=== PATIENT | male | born 1950 | race American Indian/Alaskan Native ===

== ENCOUNTER 2023-09-19 10:12 | Inpatient (IN) | payer BC, OTHER ==
[~2023-09-19] VITALS: Ht 177.8 cm; Wt 60.0 kg
[2023-09-19 10:13] VITALS: BP 118/75; RESP 15; O2SAT 97
[2023-09-19 10:51] VITALS: PULSE 82
[2023-09-19 11:15] LABS: Basophils # (auto) 0 10 ^3/uL (0-0.2); Basophils % (auto) 0.1 % (0.0-2.0); Eosinophils # (auto) 0 10 ^3/uL (0-0.8); Eosinophils % (auto) 0.1 % (0.0-7.0); Hematocrit 38.3 % (41.0-53.0); Hemoglobin 12.2 g/dL (13.5-17.5); Lymphocytes # (auto) 1.2 10 ^3/uL (0.4-5.4); Mean Corpuscular Hemoglobin 28.8 pg (28.0-32.0); Mean Corpuscular Volume 90.1 fL (80.0-100.0); Monocytes # (auto) 0.8 10 ^3/uL (0-1.3); Monocytes % (auto) 3.8 % (0.0-12.0); Neutrophils # (auto) 18.6 10 ^3/uL (1.6-8.6); Nucleated Red Blood Cells % 0.1 %; Red Blood Cells 4.25 10^6/uL (4.5-5.90); Red Cell Distribution Width 16.8 % (11.8-14.3); White Blood Cell 20.6 10^3/uL (4.4-10.8)
[2023-09-19 12:06] LABS: Albumin 3.4 g/dL (3.2-4.8); Alkaline Phosphatase 93 U/L (46-116); Anion Gap 8 (5-15); Aspartate Aminotransferase 24 U/L (13-40); BUN/Creatinine Ratio 19.8 (10.0-20.0); Blood Urea Nitrogen 18 mg/dL (9-23); Calcium 8.7 mg/dL (8.5-10.1); Carbon Dioxide 24 mmol/L (20-30); Chloride 105 mmol/L (98-107); Glucose 106 mg/dL (74-106); Potassium 3.8 mmol/L (3.5-5.1); Sodium 137 mmol/L (136-145); Total Protein 6.6 g/dL (5.7-8.2)
[2023-09-19 12:16] LABS: Bilirubin, Total 0.6 mg/dL (0.2-1.0)
[2023-09-19 12:21] LABS: Alanine Aminotransferase < 9 U/L (7-40)
[2023-09-19 12:38] LABS: INR 1.1 (0.9-1.15); Partial Thromboplastin Time 27.6 SEC (24.5-34.5); Prothrombin Time 11.6 sec (9.3-11.8)
[2023-09-19] MEDS: IOHEXOL 350 MG/ML 100ML IJ ONE (14:00)
[2023-09-19] MEDS ORDERED: ENOXAPARIN SOD 100 MG/1 ML SYRINGE SC ONE (19:30)
[2023-09-19] MEDS ORDERED: DOCUSATE SOD 100 MG CAP PO PRN (21:00)
[2023-09-19] MEDS ORDERED: ACETAMINOPHEN 325 MG TAB PO PRN (21:00)
[2023-09-19] MEDS ORDERED: HYDROcodone-ACET 5/325MG TAB PO PRN (21:00)
[2023-09-19] MEDS ORDERED: NITROGLYCERIN 0.4 MG SL TAB SL PRN (21:00)
[2023-09-19] MEDS ORDERED: SODIUM CHLORIDE 0.9% 1,000 ML IV ONE (21:00)
[2023-09-19] MEDS ORDERED: TEMAZEPAM 15 MG CAP PO PRN (21:00)
[2023-09-19] MEDS ORDERED: MORPHINE SULFATE INJ 2 MG/ml SYRG IV PRN ×2 (21:00)
[2023-09-19] MEDS ORDERED: ONDANSETRON HCL 4 MG/2 ML VIAL IV PRN (21:00)
[2023-09-19] MEDS ORDERED: ENOXAPARIN SOD 60 MG/0.6 ML SYRINGE SC SCH (22:00)
[2023-09-19] MEDS ORDERED: APIXABAN 5 MG TAB PO SCH (22:00)
[2023-09-20] MEDS ORDERED: PANTOPRAZOLE 40 MG TAB PO SCH (10:00)
[2023-09-26] MEDS ORDERED: APIXABAN 5 MG TAB PO SCH (22:00)
== END 2023-09-19 21:44 | disposition left against medical advice (07) | DRG 300 ==
LOC: ER 10:12 → TELE 20:52
PROVIDERS: ADMIT Nurse Practitioner; ATTEND Nurse Practitioner
DX: I82.4Y2 Acute embolism and thrombosis of unspecified deep veins of left proximal lower extremity (principal); D68.9 Coagulation defect, unspecified; Z53.29 Procedure and treatment not carried out because of patient's decision for other reasons; Z85.528 Personal history of other malignant neoplasm of kidney; Z90.81 Acquired absence of spleen
CPT/HCPCS: 36415; 71260; 74177; 80053; 85025; 85610; 85730; 93005; 93971; G0378

== ENCOUNTER 2023-09-21 18:35 | Inpatient (IN) | payer BC ==
[~2023-09-21] VITALS: Ht 177.8 cm; Wt 60.2 kg
[2023-09-21 19:26] LABS: Basophils # (auto) 0.1 10 ^3/uL (0-0.2); Basophils % (auto) 0.3 % (0.0-2.0); Eosinophils # (auto) 0 10 ^3/uL (0-0.8); Eosinophils % (auto) 0.1 % (0.0-7.0); Hematocrit 41.9 % (41.0-53.0); Hemoglobin 13.2 g/dL (13.5-17.5); Lymphocytes # (auto) 0.8 10 ^3/uL (0.4-5.4); Mean Corpuscular Hemoglobin 28.5 pg (28.0-32.0); Mean Corpuscular Hgb Conc. 31.5 g/dL (32.0-36.0); Mean Corpuscular Volume 90.3 fL (80.0-100.0); Monocytes # (auto) 0.8 10 ^3/uL (0-1.3); Monocytes % (auto) 3.9 % (0.0-12.0); Neutrophils # (auto) 19.3 10 ^3/uL (1.6-8.6); Neutrophils % (auto) 91.7 % (37.0-80.0); Nucleated Red Blood Cells % 0.1 %; Red Blood Cells 4.64 10^6/uL (4.5-5.90); Red Cell Distribution Width 16.5 % (11.8-14.3); White Blood Cell 21.1 10^3/uL (4.4-10.8)
[2023-09-21 19:45] LABS: Albumin 3.6 g/dL (3.2-4.8); Alkaline Phosphatase 100 U/L (46-116); Anion Gap 9 (5-15); Aspartate Aminotransferase 21 U/L (13-40); BUN/Creatinine Ratio 19.8 (10.0-20.0); Bilirubin, Total 0.8 mg/dL (0.2-1.0); Blood Urea Nitrogen 17 mg/dL (9-23); Calcium 9.1 mg/dL (8.7-10.4); Carbon Dioxide 22 mmol/L (20-30); Chloride 103 mmol/L (98-107); Glucose 121 mg/dL (74-106); Potassium 3.7 mmol/L (3.5-5.1); Sodium 134 mmol/L (136-145); Total Protein 6.8 g/dL (5.7-8.2)
[2023-09-21 19:53] LABS: Alanine Aminotransferase < 9 U/L (7-40)
[2023-09-21] MEDS: ENOXAPARIN SOD 60 MG/0.6 ML SYRINGE SC ONE (20:19)
[2023-09-21 20:30] VITALS: PULSE 76; RESP 18; O2SAT 95
[2023-09-21] MEDS ORDERED: MORPHINE SULFATE INJ 2 MG/ml SYRG IV PRN (20:45)
[2023-09-21] MEDS ORDERED: ACETAMINOPHEN 325 MG TAB PO PRN (20:45)
[2023-09-21] MEDS ORDERED: NITROGLYCERIN 0.4 MG SL TAB SL PRN (20:45)
[2023-09-22] VITALS (12 sets, daily range): BP systolic 112–149; BP diastolic 79–93; PULSE 67–124; RESP 14–19; TEMP 97.5–98.6; O2SAT 95–99
[2023-09-22] MEDS ORDERED: VALA1TAB34 PO (02:30)
[2023-09-22 07:21] LABS: Albumin 3.2 g/dL (3.2-4.8); Alkaline Phosphatase 85 U/L (46-116); Anion Gap 9 (5-15); Aspartate Aminotransferase 20 U/L (13-40); Basophils # (auto) 0.1 10 ^3/uL (0-0.2); Basophils % (auto) 0.4 % (0.0-2.0); Blood Urea Nitrogen 18 mg/dL (9-23); Calcium 8.7 mg/dL (8.5-10.1); Carbon Dioxide 23 mmol/L (20-30); Chloride 104 mmol/L (98-107); Eosinophils # (auto) 0.1 10 ^3/uL (0-0.8); Eosinophils % (auto) 0.7 % (0.0-7.0); Glucose 87 mg/dL (74-106); Hematocrit 34.6 % (41.0-53.0); Hemoglobin 11.1 g/dL (13.5-17.5); Lymphocytes # (auto) 1.4 10 ^3/uL (0.4-5.4); Lymphocytes % (auto) 7.4 % (10.0-50.0); Mean Corpuscular Hemoglobin 28.7 pg (28.0-32.0); Mean Corpuscular Hgb Conc. 32.1 g/dL (32.0-36.0); Mean Corpuscular Volume 89.5 fL (80.0-100.0); Monocytes # (auto) 1.5 10 ^3/uL (0-1.3); Monocytes % (auto) 7.8 % (0.0-12.0); Neutrophils % (auto) 83.7 % (37.0-80.0); Nucleated Red Blood Cells % 0.1 %; Potassium 3.2 mmol/L (3.5-5.1); Red Blood Cells 3.87 10^6/uL (4.5-5.90); Red Cell Distribution Width 16.3 % (11.8-14.3); Sodium 136 mmol/L (136-145); White Blood Cell 19.1 10^3/uL (4.4-10.8)
[2023-09-22 07:22] LABS: Bilirubin, Total 0.6 mg/dL (0.2-1.0); Total Protein 5.9 g/dL (5.7-8.2)
[2023-09-22 07:38] LABS: Alanine Aminotransferase < 9 U/L (7-40)
[2023-09-22 09:38] LABS: INR 1.15 (0.9-1.15); Partial Thromboplastin Time 31.8 SEC (24.5-34.5); Prothrombin Time 12.1 sec (9.3-11.8)
[2023-09-22] MEDS ORDERED: APIXABAN 5 MG TAB PO SCH (10:00)
[2023-09-22] MEDS ORDERED: ENOXAPARIN SOD 100 MG/1 ML SYRINGE SC SCH (10:00)
[2023-09-22] MEDS: PANTOPRAZOLE 40 MG TAB PO SCH (10:14)
[2023-09-22] MEDS: ENOXAPARIN SOD 60 MG/0.6 ML SYRINGE SC SCH (10:14)
[2023-09-22] MEDS: AMIODARONE BOLUS KIT 100 ML IV ONE (11:53)
[2023-09-22] MEDS: AMIODARONE 450mg/250ml AE 250 ML IV SCH ×2 (12:04→18:53)
[2023-09-22] MEDS: ACYCLOVIR 400 MG TAB PO SCH (16:20)
[2023-09-22] MEDS: DOCUSATE SOD 100 MG CAP PO SCH (16:20)
[2023-09-22] MEDS: HYDROcodone-ACET 5/325MG TAB PO PRN (17:02)
[2023-09-22] MEDS ORDERED: METOPROLOL TARTRATE 25 MG TAB PO SCH (22:00)
[2023-09-23] VITALS (7 sets, daily range): BP systolic 103–144; BP diastolic 65–83; PULSE 65–107; RESP 16–18; TEMP 97.6–98.4; O2SAT 93–97
[2023-09-23 01:21] LABS: Urine Bacteria None Seen /hpf (None Seen)
[2023-09-23 01:44] LABS: Urine Blood Negative /uL (Negative); Urine Clarity Clear (Clear); Urine Color Yellow (Yellow); Urine Protein, UAD TRACE (Negative); Urine Specific Gravity 1.034 (1.001-1.035); Urine Urobilinogen 2 mg/dL (Negative); Urine WBC 21 /hpf (0 - 3); Urine pH 5.5 (5.0-9.0)
[2023-09-23] MEDS: METOPROLOL TARTRATE 50 MG TAB PO SCH (08:31)
[2023-09-23] MEDS: POTASSIUM CHL 20 Meq TABLET PO ONE (10:43)
[2023-09-24] VITALS (8 sets, daily range): BP systolic 117–138; BP diastolic 68–83; PULSE 42–81; RESP 16–19; TEMP 97.4–97.9; O2SAT 93–97
[2023-09-24] MEDS: SODIUM CHLORIDE 0.9% 1,000 ML IV SCH (13:24)
[2023-09-24] MEDS: MORPHINE SULFATE INJ 2 MG/ml SYRG IV PRN (15:11)
[2023-09-24 21:25] LABS: Urine Bacteria None Seen /hpf (None Seen)
[2023-09-24 21:41] LABS: Urine Blood Negative /uL (Negative); Urine Clarity Clear (Clear); Urine Color Yellow (Yellow); Urine Protein, UAD 1+ (Negative); Urine Specific Gravity 1.024 (1.001-1.035); Urine Urobilinogen Normal (Negative); Urine WBC 23 /hpf (0 - 3); Urine pH 5.5 (5.0-9.0)
[2023-09-25] VITALS (7 sets, daily range): BP systolic 90–132; BP diastolic 54–77; PULSE 70–104; RESP 17–20; TEMP 97.9–98.2; O2SAT 93–97
[2023-09-25] MEDS ORDERED: FLUMAZENIL 0.1 MG/ML INJ 10ML MDV IV ONE (08:31)
[2023-09-25] MEDS ORDERED: NALOXONE HCL 0.4 MG/ML VIAL ONE (08:31)
[2023-09-25] MEDS ORDERED: LIDOCAINE 2% JELLY 11ml (GLYDO) ONE (08:32)
[2023-09-25] MEDS ORDERED: SODIUM CHLORIDE LOCK 10 ML ONE (08:32)
[2023-09-25] MEDS ORDERED: LIDOCAINE 2%HCL (LOCAL ANESTH.) INJ 20ML MDV ONE (08:32)
[2023-09-25] MEDS ORDERED: EPINEPHrine HCL 1 MG/1 ML AMP ONE (08:33)
[2023-09-25] MEDS ORDERED: GLYCOPYRROLATE 0.2 MG/ML 1ML VIAL ONE (08:34)
[2023-09-25] MEDS: fentaNYL CITRATE 100 MCG/2 ML VL ONE (09:20)
[2023-09-25] MEDS: MIDAZOLAM HCL 5 MG/ML-1ML VIAL ONE (09:20)
[2023-09-25 15:01] LABS: Albumin 3.1 g/dL (3.2-4.8); Alkaline Phosphatase 97 U/L (46-116); Anion Gap 11 (5-15); Aspartate Aminotransferase 21 U/L (13-40); BUN/Creatinine Ratio 15.7 (10.0-20.0); Blood Urea Nitrogen 14 mg/dL (9-23); Calcium 8.5 mg/dL (8.5-10.1); Carbon Dioxide 20 mmol/L (20-30); Chloride 107 mmol/L (98-107); Glucose 70 mg/dL (74-106); Potassium 3.6 mmol/L (3.5-5.1); Sodium 138 mmol/L (136-145)
[2023-09-25 15:02] LABS: Alanine Aminotransferase < 9 U/L (7-40); Bilirubin, Total 0.8 mg/dL (0.2-1.0); Total Protein 5.6 g/dL (5.7-8.2)
[2023-09-26] VITALS (7 sets, daily range): BP systolic 108–121; BP diastolic 57–74; PULSE 74–87; RESP 16–20; TEMP 97.6–97.9; O2SAT 91–95
[2023-09-26] MEDS ORDERED: APIX5TAB PO (11:33)
[2023-09-26] MEDS ORDERED: MET50T PO (11:33)
[2023-09-26] MEDS ORDERED: HYDR-4902 PO (11:33)
[2023-09-26] MEDS ORDERED: MEGE20TA3 PO (11:36)
[2023-09-26 13:23] LABS: Magnesium 1.6 mg/dL (1.6-2.6)
[2023-09-26] MEDS: MEGESTROL ACET 400MG/10ML ORAL SUSP PO SCH (13:58)
[2023-09-26] MEDS: APIXABAN 5 MG TAB PO SCH (18:21)
[2023-09-29] MEDS ORDERED: APIXABAN 5 MG TAB PO SCH (10:00)
[2023-10-03] MEDS ORDERED: APIXABAN 5 MG TAB PO SCH ×3 (10:00→22:00)
== END 2023-09-26 19:14 | disposition home or self-care (01) | DRG 264 ==
LOC: ER 18:35 → TELE 20:45 → TELE-CENTR 09-22 02:17
PROVIDERS: ADMIT Nurse Practitioner; ATTEND Nurse Practitioner
PROC: 0B9J8ZX Drainage of Left Lower Lung Lobe, Via Natural or Artificial Opening Endoscopic, Diagnostic (ICD-10-PCS; 2023-09-25)
PROC: 0BBJ8ZX Excision of Left Lower Lung Lobe, Via Natural or Artificial Opening Endoscopic, Diagnostic (ICD-10-PCS; principal; 2023-09-25 09:20)
DX: I82.412 Acute embolism and thrombosis of left femoral vein (principal); C64.2 Malignant neoplasm of left kidney, except renal pelvis; C78.00 Secondary malignant neoplasm of unspecified lung; D68.9 Coagulation defect, unspecified; I47.10 Supraventricular tachycardia, unspecified; Z68.1 Body mass index [BMI] 19.9 or less, adult; J98.11 Atelectasis; C79.31 Secondary malignant neoplasm of brain; R91.8 Other nonspecific abnormal finding of lung field; E78.5 Hyperlipidemia, unspecified; B02.9 Zoster without complications; I48.0 Paroxysmal atrial fibrillation; I35.8 Other nonrheumatic aortic valve disorders; R63.4 Abnormal weight loss; I50.9 Heart failure, unspecified; I11.0 Hypertensive heart disease with heart failure; Z80.0 Family history of malignant neoplasm of digestive organs; Z90.81 Acquired absence of spleen; Z87.891 Personal history of nicotine dependence; Z79.899 Other long term (current) drug therapy
CPT/HCPCS: 31625; 36415; 71045; 71275; 80053; 81001; 83605; 83735; 83880; 84443; 84484; 85025; 85379; 85610; 85730; 87040; 87070; 87205; 93005; 93306; 93970; G0378; J0171; J2250